=== PATIENT | male | born 1970 | race Caucasian/White ===

== ENCOUNTER 2023-10-22 11:22 | Inpatient (IN) ==
--- NOTE | 2023-10-22 11:50 | Emergency Department Note ---
Impression & Plan Weakness, Hypomagnesemia, Weight loss, Vomiting, Melanoma ED Provider Note NAME: WHITNEY MATUTE AGE: 52 SEX: M : 1970 ARRIVES VIA: Walk-In INFORMANT: [Patient][] ED PROVIDER(S): [Scott Galicia MD] CHIEF COMPLAINT: Referred HISTORY OF PRESENT ILLNESS: The patient is a 52-year-old male with a history of melanoma. He is undergoing treatment with Keytruda. For the last 3 months, he has done poorly. He has lost 60 pounds. He keeps vomiting despite numerous meds prescribed at home. He was [facility] seen [facility] and was felt in need of a hospital admission. As a direct admit was not possible, he was referred to the ER. The patient does admit to dizziness with standing. He feels at times like he may pass out. He feels generalized weakness. He did vomit at the [facility] while in the waiting room. There is no diarrhea, no fever, chills, cough or congestion. No one-sided weakness. The patient states that he last had Keytruda on September 20. His most recent scheduled dose was held as he was too weak and washed out to receive the therapy. At this point in time, the cause for his persistent vomiting is unclear. The cancer physician asked that he see GI while hospitalized and that an MRI be done to look for metastatic lesions. Laboratory work was done prior to arrival. The patient's magnesium was somewhat low. No renal failure. There was no leukocytosis. The patient does admit to frequent hiccups. By report, recent CT imaging of the chest, abdomen/pelvis did not show metastatic disease. PMHx/PSHx/Social Hx: See Below PHYSICAL EXAM: GENERAL: Patient is in no acute distress. HEENT: No acute trauma, normocephalic atraumatic, mucous membranes moist, no nasal congestion. NECK: No stridor, no adenopathy, no meningismus, trachea is midline. LUNGS: Clear to auscultation bilaterally, no wheeze, no rhonchi, breath sounds equal. HEART: Mildly tachycardic, regular rhythm, no murmurs. ABDOMEN: Soft, nontender, no peritonitis. EXTREMITIES: No cyanosis, full range of motion of all the joints without pain or difficulty. NEUROLOGIC: Oriented x 3, no acute motor or sensory deficits, no focal weakness. SKIN: No jaundice, no diaphoresis. DIFFERENTIAL DIAGNOSIS: Metastatic disease, dehydration, electrolyte imbalance, medication reaction, failed outpatient management, gastritis, among others. EMERGENCY DEPARTMENT PROCEDURES: MEDICAL DECISION MAKING: The patient's laboratory workup from earlier today did not show any leukocytosis. The patient was anemic with a hemoglobin of 10.7. This was a slight drop from recent testing. There was a normal platelet count. Potassium was mildly low at 3.4. No renal failure. Magnesium is low at 1.5. There was no concerning liver enzyme elevation. On exam, the patient was not toxic or febrile. He was not in pain. The patient was given IV Phenergan, IV Protonix, IV magnesium and 1 L of lactated Ringer's. The patient presents from the cancer center. He has had a significant weight loss. He is vomiting despite numerous medications tried outpatient. Hospitalization was felt warranted by the cancer specialist. I did order for a brain MRI as suggested by the cancer team. This returned showing no findings of metastasis. I spoke with the patient and his family, I did speak with case management, the on-call hospitalist was consulted. At this point, the cause for the persistent vomiting is unclear Prior/Outside records/notes reviewed: ED visit note from 10/16/2023 discussing his vomiting, care and the plan moving forward. ECG per my interpretation: Indication was weakness. The ECG shows a normal sinus rhythm with a rate of 82. There is an incomplete right bundle branch bloc k. There is no concerning ST elevation, no PVCs but there is some baseline artifact. The QTc is 488. Continuous Cardiac Monitoring per my interpretation: An order was placed for continuous cardiac monitoring. The monitor shows a rate of 88 with normal sinus rhythm. Imaging/x-ray results per my interpretation: Chronic Medical/Social conditions affecting care: Diagnosis of melanoma. Care/Management discussed with: Case management and the on-call hospitalist. Level of care consideration(s): After review of the information above and other included data: --I believe the patient requires escalation of care to admission DISPOSITION: Admission Past Med/Surg History Medical History Melanoma Surgical History History of skin surgery Social History Smoking Status: Never smoker Tobacco Type: Cigarettes Hx Alcohol Use: No Hx Substance Use: No Preferred Language: Mongolian Communication Ability: Effective Chief Data Officer Required: No Beliefs That Will Affect Care: None Current Living Situation: Spouse Other Information That Helps Us Care for You: No Feels Safe at Home: Yes Safety Concerns: Feels Safe At This Time Assistive Devices: Cane and Glasses Allergies Allergies Allergy/AdvReac Type Severity Reaction Status Date / Time aspirin Allergy King's Verified 10/22/23 12:50 syndrome Home Meds Home Medications Medication Instructions Recorded Confirmed ondansetron 4 mg disintegrating 4 mg translingual Q12 PRN Nausea 10/22/23 10/22/23 tablet prochlorperazine maleate 5 mg 5 mg PO Q6 PRN Nausea 10/22/23 10/22/23 tablet promethazine 25 mg tablet 25 mg PO Q6 PRN Nausea 10/22/23 10/22/23 Previous Rx's Medication Instructions Recorded promethazine 25 mg rectal 25 mg IN Q6H PRN sedation #12 ea 10/16/23 suppository Results & Data (ED) Vital Signs Vital Signs - 24 hr 10/22/23 11:24 10/22/23 12:05 Temperature 36.7 C Temperature Source Temporal Artery Scan Pulse Rate 88 Pulse Rate [Finger] 86 Respiratory Rate 20 18 Respiratory Effort / Characteristics Non-Labored Spontaneous Non-Labored Respiratory Depth Normal Normal Respiratory Pattern Regular Blood Pressure 109/71 Blood Pressure [Left Arm] 146/81 H Blood Pressure Mean 83 Blood Pressure Mean [Left Arm] 102 Pulse Oximetry 100 96 Oxygen Delivery Method Room Air Room Air Sepsis Recent Fever Within 48 Hours No Sepsis New/Unexplained Change in Mental Status No Sepsis Action Taken by Nursing No Action Required Home Medications Current Medication List: was personally reviewed by me Laboratory Data Attestation: I reviewed the patient's lab results. Lab Results 10/22/23 Range/Units 09:40 Phosphorus 4.9 (2.5-4.9) mg/dl Administered Medications Lactated Ringer's (Lr) 1,000 mls @ 100 mls/hr IV .Q10H WARD Stop: 10/23/23 08:29 Last Admin: 10/22/23 13:59 Dose: 100 mls/hr Documented By: SUSAN Potassium Chloride (K Jagjit / Wtr) 10 meq in 100 mls @ 100 mls/hr IV Q1H WARD Stop: 10/22/23 16:29 Last Admin: 10/22/23 15:58 Dose: 100 mls/hr Documented By: Infusion: 10/22/23 15:58 Dose: Infused Documented By: Admin: 10/22/23 14:55 Dose: 100 mls/hr Documented By: SUSAN Ropinirole HCl (Ropinirole Hcl 0.25 Mg Tablet) 0.25 mg PO TID WARD Stop: 11/21/23 14:59 Last Admin: 10/22/23 15:24 Dose: 0.25 mg Documented By: SUSAN Discontinued Medications Diphenhydramine HCl (Diphenhydramine 50 Mg/Ml Vial) 25 mg IV NOW STA Stop: 10/22/23 12:44 Last Admin: 10/22/23 14:18 Dose: 25 mg Documented By: SUSAN Gadobutrol (Gadobutrol 30ml Vial) 9 ml IV ONCE ONE Stop: 10/22/23 13:58 Last Admin: 10/22/23 13:42 Dose: 9 ml Documented By: LORENE Lactated Ringer's (Lr) 1,000 mls @ 999 mls/hr IV .Q1H1M ONE Stop: 10/22/23 12:44 Last Infusion: 10/22/23 15:15 Dose: Infused Documented By: Admin: 10/22/23 12:02 Dose: 999 mls/hr Documented By: SUSAN Promethazine HCl (Phenergan) 12.5 mg in 50.5 mls @ 202 mls/hr IV NOW STA Stop: 10/22/23 11:58 Last Infusion: 10/22/23 12:20 Dose: Infused Documented By: Admin: 10/22/23 11:56 Dose: 202 mls/hr Documented By: SUSAN Magnesium Sulfate/Dextrose (Magnesium Sulfate / D5w) 1 gm in 100 mls @ 100 mls/hr IV Q1H WARD Stop: 10/22/23 13:43 Last Infusion: 10/22/23 16:29 Dose: Infused Documented By: Admin: 10/22/23 15:24 Dose: 100 mls/hr Documented By: Infusion: 10/22/23 14:52 Dose: Infused Documented By: Admin: 10/22/23 12:00 Dose: 100 mls/hr Documented By: SUSAN Pantoprazole Sodium 40 mg/ (Syringe) 10 mls @ 5 mls/min IV NOW ONE Stop: 10/22/23 11:45 Last Admin: 10/22/23 14:18 Dose: 5 mls/min Documented By: SUSAN Miscellaneous (Stat Iv Infusion Titration Per Protocol) 1 each N/A NOW STA Stop: 10/22/23 14:09 Last Admin: 10/22/23 15:15 Dose: Not Given Documented By: SUSAN Imaging Data Radiologist's Impression: Brain MRI 10/22/23 11:44 MRI OF THE BRAIN COMBO CLINICAL HISTORY: Malignant melanoma. COMPARISON STUDY: MRI of the brain dated 03/18/2023. TECHNIQUE: MRI of the brain was performed utilizing various T1 and T2-weighted sequences in the axial, sagittal, and coronal planes. Contrast-enhanced sequences were acquired following the administration of 9 cc of Gadavist. FINDINGS: Brain parenchyma: The brain parenchyma is normal in appearance. There is no hemorrhage or mass effect. There is no restricted diffusion to suggest acute ischemia. No enhancing mass lesion is identified on the postcontrast images. Cherry-white matter differentiation is preserved. No extra-axial fluid collection is seen. The cerebellar tonsils are normal in configuration. Ventricles, sulci, and cisterns: Normal in configuration. Pituitary and sella: Unremarkable. Intracranial vasculature: Normal flow voids are maintained at the skull base. Orbits: The bony orbits are grossly intact. Orbital contents are normal in appearance. Sinuses and mastoids: There is a 3.8 cm retention cyst in the left maxillary antrum. Trace mucosal thickening seen within the left posterior ethmoid sinuses. The remaining paranasal sinuses and the mastoid air cells are clear. Calvarium: Unremarkable. Cervical cord: Partially visualized cervical spinal cord is normal in morphology and signal intensity. IMPRESSION: No acute intracranial abnormality is identified. Specifically, there is no evidence of intracranial metastatic disease. ACT 112: Negative or not required by law. Electronically signed by: Scott Vargas M.D. 10/22/2023 2:07 PM Discharge Plan Visit Data Chief Complaint: Referred by Doctor Stated Complaint: DIZZINESS, VOMITING, UNABLE TO EAT ED Provider: Scott Galicia Discharge Problem: Weakness, Hypomagnesemia, Weight loss, Vomiting, Melanoma Patient Disposition: Admitted As Inpatient Condition: Fair Discharge Instructions Interventions: ED Discharge Assessment Last Done: 10/22/23 12:54 Discharge Problem: Vomiting Qualifiers: Vomiting type: unspecified Nausea presence: with nausea Qualified Code(s): R11.2 - Nausea with vomiting, unspecified Melanoma Qualifiers: Melanoma location: unspecified site Qualified Code(s): C43.9 - Malignant melanoma of skin, unspecified
[2023-10-22] MEDS: PROMETHAZINE 12.5 MG/50.5 ML BAG IV STA (11:56)
[2023-10-22] MEDS: MAGNESIUM SULFATE / D5W 1 GM/100 ML BAG IV SCH (12:00)
[2023-10-22] MEDS: LACTATED RINGER'S 1,000 ML IV ONE (12:02)
--- NOTE | 2023-10-22 12:16 | History & Physical Report ---
Date of Service October 22, 2023 Assessment & Plan (1) Nausea & vomiting: Plan: -Admit to med/tele -Currently stable and non-toxic appearing -[facility] due to ongoing intractable nausea/vomiting, dehydration, dizziness, and weight loss -Has been experiencing these symptoms for months, no acute abdominal changes, had a negative CT of the abd/pelvis on 10/13 -Likely due to his known melanoma and Keytruda treatment -Compazine had been ineffective outpatient, was switched to zofran after his last ED visit on 10/13, this has also been ineffective -Was given 1L LR, a dose of Phenergan, 40 mg IV pantoprazole, and ordered 2 bags of 1gm IV mag-sulfate in the ED -Will continue him on maintenance LR moving forward until he can keep liquids down consistency. -Will need to continue to monitor him on tele for now as his QTc today is 488 -Will try a dose of IV benadryl now to see if this helps his nausea and itching -Could also consider ativan if QTc prolongation continues to be a concern -Will follow the MRI of the brain w/wo con ordered by the ED -Will add on Phos level to labs from this am -Oncology consult placed to follow while admitted -BL FELIX's for DVT PPX -Clear liquid diet -AM CBC, CMP mag, PT/INR, Phos (2) Malnutrition: Plan: -Has lost approximately 60 lbs since July -Will consult our [facility] to follow (3) Dizziness: Plan: -Is associated with positional changes and worst when going from sitting to standing -Denies sensation that room is spinning or changes in hearing/auditory fullness -Sounds most consistent with dehydration and orthostasis -Will follow MRI of the brain w/wo con -Continue IV hydration -Monitor for arrhythmias on tele -Will order am orthostatic vitals tomorrow -If not improving after IV fluids today could consider TTE -Fall precautions ordered (4) History of melanoma: Plan: -Oncology consult placed (5) Hypokalemia: Plan: -Noted to be 3.4 today -Mag is 1.5 -Due to poor oral intake and ongoing nausea/vomiting -Was ordered 2 bags IV mag sulfate in the ED -Will order 4 bags of IV KCL to be given on admission -Continue to monitor on tele -Follow am renal function and electrolytes (6) Hypomagnesemia: Plan: -See hypokalemia Plan The patient was discussed with Dr. Vizcaino at the time of the admission Admission and Anticipated Discharge Date Admission Date: I personally saw and examined the patient. I verified all [place] points and agree with Brendon Singh PA-C with the following exceptions and/or additions: 52 year old male presents to the ER with nausea, vomiting and pruritus. Currently on Keytruda for melanoma. Progressively worse symptoms over the last month. O/E A&Ox3, HS RRR, no murmurs, Chest CTAB, Abdo SNT A/P Intractable nausea, vomiting, pruritus - suspect symptoms secondary to Keytruda. No odynophagia/dysphagia to suggest there is a structural problem. He has only just started ondansetron which is likely to work the best. Ondansetron 1st line, Compazine 2nd line. Clear liquid diet but advance as tolerated. Consult gastroenterology as requested by oncology. History of Present Illness Chief Complaint: Intractable nausea and vomiting Primary Care Provider: NO PCP Wilfrid is a 52 year old male with a PMH significant for melanoma, Keytruda therapy has been on hold due to weakness (last dose on 09/21/23) , who presented to the [facility]23 due to concerns for ongoing intractable nausea/vomiting, dehydration, and dizziness when standing. He remained stable while in the ED. Labs were significant for a potassium of 3.4, mag of 1.5. [facility] tried to directly admit the patient but there were no available bed so he was sent to the ED. The patient presented to the ED on 10/13 with the same complaints. CT of the chest/abd/pelvis without con were obtained at that time and read as negative for acute findings. Prior to admission today the patient was given 1L LR, ordered 2gm IV mag sulfate, and given 40 mg IV pantoprazole, and 12.5 mg IV Promethazine. The ED staff did order an MRI of the brain w/wo con requested by the Oncology team prior to admission. At the time of the exam the patient was lying in bed in no acute distress with his sitting bedside, history was obtained from both. They confirm he has no other PMH besides his current melanoma diagnosis. He has lost approximately 60 lbs since the beginning of this year due to poor oral intake from recurrent nausea and vomiting. Has also been having ongoing issues with lightheadedness/dizziness with positional changes. He denies these symptoms while at rest. Denies recent headache, changes in vision, hearing, taste, and smell, chest pain, SOB, cough, aspiration, hematemesis, abd pain, dysuria, hematuria, melena, diarrhea, constipation, LE swelling, and recent trauma. He has been dealing with itching on the upper and lower extremities which started after receiving keytruda treatments. He does not noticed a rash but thinks his skin has also been dry. He has been unable to keep solids or liquids down consistently. Please refer to Dr. Vizcaino's attestation for any changes to the treatment plan Allergies Allergy/AdvReac Type Severity Reaction Status Date / Time aspirin Allergy King's Verified 10/22/23 12:50 syndrome Home Medications Medication Instructions Recorded Confirmed Type promethazine 25 mg rectal 25 mg [place] Q6H PRN sedation #12 ea 10/16/23 10/22/23 Rx suppository ondansetron 4 mg disintegrating 4 mg translingual Q12 PRN Nausea 10/22/23 10/22/23 History tablet promethazine 25 mg tablet 25 mg PO Q6 PRN Nausea 10/22/23 10/22/23 History pantoprazole 40 mg tablet,delayed 40 mg PO DAILY #30 tabs 10/25/23 Rx release (Protonix) Past Med/Surg History Medical History Melanoma Surgical History History of skin surgery Social History Smoking Status: Never smoker Tobacco Type: Cigarettes Hx Alcohol Use: No Hx Substance Use: No Preferred Language: Bruneian Communication Ability: Effective Technical Support Analyst Required: No Beliefs That Will Affect Care: None Current Living Situation: Spouse Feels Safe at Home: Yes Assistive Devices: Cane Physical Exam Physical Exam: Physical Exam: General: In no acute distress, stated age, non-toxic appearing HEENT: Normocephalic, atraumatic, no scleral icterus, pupils around round, symmetrical, and reactive to light, dry mucus membranes, trachea midline, no thyromegaly Chest/Pulm: No respiratory distress, symmetrical chest expansion, clear breath sounds throughout Cardiac: RRR, no murmurs noted Abdomen: Negative for ascites and bruising, normoactive bowel sounds, soft, non-tender to palpation throughout Musculoskeletal: Symmetrical and without signs of acute trauma, upper and lower extremities with full ROM, no atrophy, spasticity, or flaccidity Extremities: Radial, dorsalis pedis, and posterior tibial pulses are intact and symmetrical, no edema noted in the BL LE's Skin: Warm, dry, no rashes , lesions, or scars noted Neuro: Alert and oriented to person, place, month, year, and president, no focal defects, CN II-XII tested and intact, negative cerebellar and pronator drift BL, no tremors noted Psych: No acute distress, calm and cooperative during the exam Results & Data Results & Data Vital Signs (Past 12 Hours) Vital Signs Temp Pulse Resp BP Pulse Ox O2 Del Method 10/22/23 11:24 36.7 C 88 20 109/71 100 Room Air ECG Additional Comments: Normal sinus rhythm Possible Left atrial enlargement Incomplete right bundle branch block Prolonged QT Abnormal ECG No previous ECGs available Code Status & VTE Plan Code Status Full code VTE Prophylaxis Plan VTE Prophylaxis will be ordered: Yes PG Care Time/CCT Total # of Minutes Spent Total Time Spent with Patient: Total time spent is greater than 50% in coordination of care (as documented) at patient's floor/unit and/or counseling patient: [place] [address] INT INP/OBS CARE 3/75MIN Patient Type New Medical Decision Making High Complexity Diagnoses Nausea & vomiting R11.2 Vomiting type: unspecified Malnutrition E46 Dizziness R42 History of melanoma Z85.820 Hypokalemia E87.6 Hypomagnesemia E83.42 (1) Nausea & vomiting Vomiting type: unspecified Qualified Code(s): R11.2 - Nausea with vomiting, unspecified
[2023-10-22] MEDS ORDERED: ACETAMINOPHEN 1,000 MG/100 ML VIAL IV PRN (12:36)
[2023-10-22] MEDS: GADOBUTROL 30ML VIAL IV ONE (13:42)
[2023-10-22] MEDS: LACTATED RINGER'S 1,000 ML IV SCH (13:59)
[2023-10-22] MEDS ORDERED: 0.2 MICRON FILTER SET 1 EACH IV STA (14:08)
[2023-10-22] MEDS ORDERED: AMIODARONE IV BOLUS & DRIP IV STA (14:08)
[2023-10-22] MEDS ORDERED: AMIODARONE / D5W 150 MG/100 ML BAG IV STA (14:08)
--- NOTE | 2023-10-22 14:08 | Magnetic Resonance Report ---
MRI OF THE BRAIN COMBO CLINICAL HISTORY: Malignant melanoma. COMPARISON STUDY: MRI of the brain dated 03/18/2023. TECHNIQUE: MRI of the brain was performed utilizing various T1 and T2-weighted sequences in the axial , sagittal, and coronal planes. Contrast-enhanced sequences were acquired following the administratio n of 9 cc of Gadavist. FINDINGS: Brain parenchyma: The brain parenchyma is normal in appearance. There is no hemorrhage or mass effect . There is no restricted diffusion to suggest acute ischemia. No enhancing mass lesion is identified on the postcontrast images. Cherry-white matter differentiation is preserved. No extra-axial fluid eliana ection is seen. The cerebellar tonsils are normal in configuration. Ventricles, sulci, and cisterns: Normal in configuration. Pituitary and sella: Unremarkable. Intracranial vasculature: Normal flow voids are maintained at the skull base. Orbits: The bony orbits are grossly intact. Orbital contents are normal in appearance. Sinuses and mastoids: There is a 3.8 cm retention cyst in the left maxillary antrum. Trace mucosal th ickening seen within the left posterior ethmoid sinuses. The remaining paranasal sinuses and the mast oid air cells are clear. Calvarium: Unremarkable. Cervical cord: Partially visualized cervical spinal cord is normal in morphology and signal intensity . IMPRESSION: No acute intracranial abnormality is identified. Specifically, there is no evidence of i ntracranial metastatic disease. ACT 112: Negative or not required by law. Electronically signed by: Scott Vargas M.D. 10/22/2023 2:07 PM
[2023-10-22] MEDS: diphenhydrAMINE 50 MG/ML VIAL IV STA (14:18)
[2023-10-22] MEDS: PANTOprazole 40 MG in SYRINGE 0 ML IV ONE (14:18)
[2023-10-22] MEDS ORDERED: AMIODARONE / D5W 360 MG/200 ML BAG IV ONE (14:18)
[2023-10-22] MEDS: POTASSIUM CHLORIDE / WTR 10 MEQ/100 ML PLCT IV SCH (14:55)
[2023-10-22] MEDS: STAT IV Infusion **Titration per Protocol STA (15:15)
[2023-10-22] MEDS: rOPINIRole HCL 0.25 MG TABLET PO SCH ×2 (15:24→23:01)
[2023-10-22] MEDS ORDERED: diphenhydrAMINE 50 MG/ML VIAL IV PRN (17:10)
[2023-10-22] MEDS ORDERED: AMIODARONE / D5W 360 MG/200 ML BAG IV SCH (20:15)
[2023-10-22] MEDS ORDERED: ONDANSETRON INJ 2 MG/ML 2 ML VIAL IV PRN (20:36)
[2023-10-22] MEDS ORDERED: PROCHLORPERAZINE 10 MG in SYRINGE 8 ML IV PRN (20:37)
[2023-10-23 05:55] LABS: Albumin Globulin Ratio 1.6 (0.9-2); Albumin Level 3.4 gm/dl (3.4-5.0); BUN Creatinine Ratio 21.4 (10-20); Bilirubin,Total 0.6 mg/dl (0.2-1.0); Calcium 8.9 mg/dl (8.6-10.3); Creatinine Clr Calc Pharmacy 112.9 ml/min; Est GFR (African American) 116.7 ml/min; Est GFR (Non-African American) 100.7 ml/min; Globulin 2.1 gm/dl (2.5-4.0); Magnesium 1.9 mg/dl (1.7-2.4); Potassium 4.7 mmol/L (3.5-5.1); Total Protein 5.5 gm/dl (6.0-8.3)
[2023-10-23 06:27] LABS: Basophils # (auto) 0.01 K/uL (0.00-0.20); Basophils % (auto) 0.3 %; Hematocrit (blood only) 31.1 % (42.0-52.0); Hemoglobin 10.1 g/dl (14.0-18.0); Immature Granulocytes # (auto) 0.01 K/uL (0.01-0.20); Immature Granulocytes % (auto) 0.3 %; Lymphocytes # (auto) 0.68 K/uL (1.20-3.40); Lymphocytes % (auto) 21.7 %; Mean Corpuscular Hemoglobin 28.7 pg (25.0-34.0); Mean Corpuscular Hgb Conc 32.5 g/dL (32.0-36.0); Mean Corpuscular Volume 88.4 fL (80.0-100.0); Mean Platelet Volume 11.9 fL (9.4-12.4); Monocytes # (auto) 0.15 K/uL (0.11-0.59); Monocytes % (auto) 4.8 %; Neutrophils # (auto) 2.29 K/uL (1.40-6.50); Neutrophils % (auto) 72.9 %; Platelet Count 157 K/uL (130-400); RDW Coefficient of Variation 12.7 % (11.5-14.5); RDW Standard Deviation 40.9 fL (36.4-46.3); Red Blood Count 3.52 M/uL (4.70-6.10); White Blood Count 3.14 K/ul (4.8-10.8)
--- NOTE | 2023-10-23 07:13 | Electrocardiogram Report ---
Test Reason : Blood Pressure : / mmHG Vent. Rate : 082 BPM Atrial Rate : 082 BPM P-R Int : 186 ms QRS Dur : 108 ms QT Int : 402 ms P-R-T Axes : 066 050 045 degrees QTc Int : 470 ms Normal sinus rhythm Possible Left atrial enlargement Incomplete right bundle branch block Abnormal ECG No previous ECGs available Confirmed by Kali Barber ([id number]) on 10/23/2023 7:13:12 AM Referred By: REFERRED SELF Confirmed By:Kali Barber
--- NOTE | 2023-10-23 10:36 | Gastrointestinal Consultation ---
Date of Consultation October 23, 2023 Assessment & Plan (1) Vomiting: He has persistent vomiting (although none since admit) that I believe is related to Keytruda. He has no pain nor any dyspeptic symptoms so I doubt ulcer disease is causing the problem. It is possible to get metastatic melanoma to the gut so that needs to be considered. I do think EGD is warranted but it is not emergent. I told him it could be arranged as an outpatient or, if he is here Wednesday we can do it then. I will discuss with him tomorrow as he believes he will be here at least through tomorrow. It is okay with me to advance his diet as tolerated. History of Present Illness Reason for Consultation: vomiting Attending Physician: Antoni Bolivar MD History of Present Illness 52 year old man with malignant melanoma on Keytruda who has been vomiting since the first of the year. He started Keytruda in February and had no problems until the June dosage. Now as time goes on his vomiting is getting worse and he has been unable to hold things down. With this he gets dizzy and weak and has been unable to work. It was decided yesterday he needed to be admitted. He never had problem with vomiting before. He has never seen a GI doc even during this prolonged episode of vomiting. He has not had a colonoscopy. He denies heartburn and indigestion. He has no abdominal pain. Allergies Allergy/AdvReac Type Severity Reaction Status Date / Time aspirin Allergy King's Verified 10/22/23 12:50 syndrome Home Medications Medication Instructions Recorded Confirmed Type promethazine 25 mg rectal 25 mg GA Q6H PRN sedation #12 ea 10/16/23 10/22/23 Rx suppository ondansetron 4 mg disintegrating 4 mg translingual Q12 PRN Nausea 10/22/23 10/22/23 History tablet prochlorperazine maleate 5 mg 5 mg PO Q6 PRN Nausea 10/22/23 10/22/23 History tablet promethazine 25 mg tablet 25 mg PO Q6 PRN Nausea 10/22/23 10/22/23 History Patient History Medical History Melanoma Surgical History History of skin surgery Social History Smoking Status: Never smoker Tobacco Type: Cigarettes Hx Alcohol Use: No Hx Substance Use: No Preferred Language: Citizen Of [place] Communication Ability: Effective Four H Agent Required: No Beliefs That Will Affect Care: None Current Living Situation: Spouse Other Information That Helps Us Care for You: No Feels Safe at Home: Yes Safety Concerns: Feels Safe At This Time Assistive Devices: Cane and Glasses Review of Systems Review of Systems: All systems reviewed & are unremarkable except as noted in HPI & below Physical Exam Constitutional: WD/WN, vitals as above Neck: trachea midline, no thyromegaly Respiratory: normal respiratory effort, lungs clear to auscultation Cardiovascular: RRR, no murmur, no edema Gastrointestinal (Abdomen): normal bowel sounds, soft, nontender, no hepatosplenomegaly Musculoskeletal: Extremities: extremities normal to inspection Results & Data Vital Signs (Past 12 Hours) Vital Signs Temp Pulse Pulse Resp BP Pulse Ox O2 Del Method 10/23/23 07:58 36.6 C 96 H 18 127/84 95 Room Air 10/23/23 07:45 Room Air 10/23/23 06:16 99 H 10/23/23 04:56 36.4 C L 84 20 146/90 H 97 Room Air Laboratory Results 10/23/23 10/23/23 10/22/23 Range/Units 05:44 04:47 17:01 WBC 3.14 L Cancelled RBC 3.52 L Cancelled Hgb 10.1 L Cancelled Hct 31.1 L Cancelled MCV 88.4 Cancelled MCH 28.7 Cancelled MCHC 32.5 Cancelled RDW Std Deviation 40.9 Cancelled RDW Coeff of Sena 12.7 Cancelled Plt Count 157 Cancelled MPV 11.9 Cancelled Immature Gran % (Auto) 0.3 Cancelled Neut % (Auto) 72.9 Cancelled Lymph % (Auto) 21.7 Cancelled [place] % (Auto) 4.8 Cancelled Eos % (Auto) 0.0 Cancelled Baso % (Auto) 0.3 Cancelled Neut # (Auto) 2.29 Cancelled Lymph # (Auto) 0.68 L Cancelled [place] # (Auto) 0.15 Cancelled Eos # (Auto) 0.00 Cancelled Baso # (Auto) 0.01 Cancelled Immature Gran # (Auto) 0.01 Cancelled Absolute Nucleated RBC Cancelled Nucleated RBC % (auto) Cancelled Neutrophils % (Manual) Cancelled Band Neutrophils % Cancelled Lymphocytes % (Manual) Cancelled Prolymphocyte % Cancelled Reactive Lymphs % (Man) Cancelled Monocytes % (Manual) Cancelled Eosinophils % (Manual) Cancelled Basophils % (Manual) Cancelled Metamyelocytes % (Man) Cancelled Myelocytes % (Man) Cancelled Promyelocytes % (Man) Cancelled Blast Cells % (Manual) Cancelled Plasma Cell % (Manual) Cancelled Other Cells % Cancelled Nucleated RBC % Cancelled Neutrophils # (Manual) Cancelled Band Neutrophils # Cancelled Total Absolute Neuts Cancelled Lymphocytes # (Manual) Cancelled Prolymphocyte # Cancelled Reactive Lymphs # Cancelled Total Abs Lymphocytes Cancelled Monocytes # (Manual) Cancelled Eosinophils # (Manual) Cancelled Basophils # (Manual) Cancelled Metamyelocytes # (Man) Cancelled Myelocytes # (Manual) Cancelled Promyelocytes # (Man) Cancelled Blast Cells # (Man) Cancelled Plasma Cell # (Manual) Cancelled Other Cells # Cancelled Nucleated RBCs # (Man) Cancelled Hypersegmented Neuts Cancelled Hyposegmented Neuts Cancelled Hypogranular Neuts Cancelled Large Granular Lymphs Cancelled # Lrg Granular Lymphs Cancelled Hairy Cells Cancelled Smudge Cells Cancelled Toxic Granulation Cancelled Toxic Vacuolation Cancelled Dohle Bodies Cancelled Joshua Rods Cancelled Platelet Estimate Cancelled Hypogranular Platelets Cancelled Giant Platelets Cancelled Platelet Satelliting Cancelled RBC Morphology Cancelled Polychromasia Cancelled Hypochromasia Cancelled Poikilocytosis Cancelled Basophilic Stippling Cancelled Anisocytosis Cancelled Microcytosis Cancelled Macrocytosis Cancelled Spherocytes Cancelled Pappenheimer Bodies Cancelled Sickle Cells Cancelled Target Cells Cancelled Tear Drop Cells Cancelled Ovalocytes Cancelled Stomatocytes Cancelled [place] Bodies Cancelled Echinocytes Cancelled Acanthocytes (Spur) Cancelled Rouleaux Cancelled RBC Agglutinates Cancelled Schistocytes Cancelled [place] Cell Cancelled Sodium 138 (136-145) mmol/L Potassium 4.7 D (3.5-5.1) mmol/L Chloride 111 H (98-107) mmol/L Carbon Dioxide 19 L (21-32) mmol/L Anion Gap 8 (3-11) BUN 18 (6-23) mg/dl Creatinine 0.84 (0.6-1.4) mg/dl Est Cr Clr Drug Dosing 112.9 ml/min Est GFR ( Amer) 116.7 ml/min Est GFR (Non-Af Amer) 100.7 ml/min BUN/Creatinine Ratio 21.4 H (10-20) Glucose 170 H (70-99(Fasting)) mg/dl POC Glucose 117 H (70-99) mg/dl Calcium 8.9 (8.6-10.3) mg/dl Phosphorus (2.5-4.9) mg/dl Magnesium 1.9 (1.7-2.4) mg/dl Iron 76 (35-175) mcg/dl TIBC 159 L (250-450) mcg/dl Unsaturated IBC 83 L (155-355) mcg/dl Transferrin % Sat 48 (20-50) % Ferritin 353.0 (8-388) ng/ml Total Bilirubin 0.6 (0.2-1.0) mg/dl AST 27 (13-39) U/L ALT 22 (7-52) U/L Alkaline Phosphatase 36 (34-104) U/L Total Protein 5.5 L (6.0-8.3) gm/dl Albumin 3.4 (3.4-5.0) gm/dl Globulin 2.1 L (2.5-4.0) gm/dl Albumin/Globulin Ratio 1.6 (0.9-2) Vitamin B1 Pending Vitamin B12 863 (180-914) pg/ml Blood Parasites ID Cancelled 10/22/23 Range/Units 09:40 WBC RBC Hgb Hct MCV MCH MCHC RDW Std Deviation RDW Coeff of [place] Plt Count MPV Immature Gran % (Auto) Neut % (Auto) Lymph % (Auto) [place] % (Auto) Eos % (Auto) Baso % (Auto) Neut # (Auto) Lymph # (Auto) [place] # (Auto) Eos # (Auto) Baso # (Auto) Immature Gran # (Auto) Absolute Nucleated RBC Nucleated RBC % (auto) Neutrophils % (Manual) Band Neutrophils % Lymphocytes % (Manual) Prolymphocyte % Reactive Lymphs % (Man) Monocytes % (Manual) Eosinophils % (Manual) Basophils % (Manual) Metamyelocytes % (Man) Myelocytes % (Man) Promyelocytes % (Man) Blast Cells % (Manual) Plasma Cell % (Manual) Other Cells % Nucleated RBC % Neutrophils # (Manual) Band Neutrophils # Total Absolute Neuts Lymphocytes # (Manual) Prolymphocyte # Reactive Lymphs # Total Abs Lymphocytes Monocytes # (Manual) Eosinophils # (Manual) Basophils # (Manual) Metamyelocytes # (Man) Myelocytes # (Manual) Promyelocytes # (Man) Blast Cells # (Man) Plasma Cell # (Manual) Other Cells # Nucleated RBCs # (Man) Hypersegmented Neuts Hyposegmented Neuts Hypogranular Neuts Large Granular Lymphs # Lrg Granular Lymphs Hairy Cells Smudge Cells Toxic Granulation Toxic Vacuolation Dohle Bodies Joshua Rods Platelet Estimate Hypogranular Platelets Giant Platelets Platelet Satelliting RBC Morphology Polychromasia Hypochromasia Poikilocytosis Basophilic Stippling Anisocytosis Microcytosis Macrocytosis Spherocytes Pappenheimer Bodies Sickle Cells Target Cells Tear Drop Cells Ovalocytes Stomatocytes [place] Bodies Echinocytes Acanthocytes (Spur) Rouleaux RBC Agglutinates Schistocytes [place] Cell Sodium (136-145) mmol/L Potassium (3.5-5.1) mmol/L Chloride (98-107) mmol/L Carbon Dioxide (21-32) mmol/L Anion Gap (3-11) BUN (6-23) mg/dl Creatinine (0.6-1.4) mg/dl Est Cr Clr Drug Dosing ml/min Est GFR ( Amer) ml/min Est GFR (Non-Af Amer) ml/min BUN/Creatinine Ratio (10-20) Glucose (70-99(Fasting)) mg/dl POC Glucose (70-99) mg/dl Calcium (8.6-10.3) mg/dl Phosphorus 4.9 (2.5-4.9) mg/dl Magnesium (1.7-2.4) mg/dl Iron (35-175) mcg/dl TIBC (250-450) mcg/dl Unsaturated IBC (155-355) mcg/dl Transferrin % Sat (20-50) % Ferritin (8-388) ng/ml Total Bilirubin (0.2-1.0) mg/dl AST (13-39) U/L ALT (7-52) U/L Alkaline Phosphatase (34-104) U/L Total Protein (6.0-8.3) gm/dl Albumin (3.4-5.0) gm/dl Globulin (2.5-4.0) gm/dl Albumin/Globulin Ratio (0.9-2) Vitamin B1 Vitamin B12 (180-914) pg/ml Blood Parasites ID Diagnostic Findings Brain MRI 10/22/23 11:44 MRI OF THE BRAIN COMBO CLINICAL HISTORY: Malignant melanoma. COMPARISON STUDY: MRI of the brain dated 03/18/2023. TECHNIQUE: MRI of the brain was performed utilizing various T1 and T2-weighted sequences in the axial, sagittal, and coronal planes. Contrast-enhanced s equences were acquired following the administration of 9 cc of Gadavist. FINDINGS: Brain parenchyma: The brain parenchyma is normal in appearance. There is no hemorrhage or mass effect. There is no restricted diffusion to suggest acute ischemia. No enhancing mass lesion is identified on the postcontrast images. Cherry-white matter differentiation is preserved. No extra-axial fluid collection is seen. The cerebellar tonsils are normal in configuration. Ventricles, sulci, and cisterns: Normal in configuration. Pituitary and sella: Unremarkable. Intracranial vasculature: Normal flow voids are maintained at the skull base. Orbits: The bony orbits are grossly intact. Orbital contents are normal in appearance. Sinuses and mastoids: There is a 3.8 cm retention cyst in the left maxillary antrum. Trace mucosal thickening seen within the left posterior ethmoid sinuses. The remaining paranasal sinuses and the mastoid air cells are clear. Calvarium: Unremarkable. Cervical cord: Partially visualized cervical spinal cord is normal in morphology and signal intensity. IMPRESSION: No acute intracranial abnormality is identified. Specifically, there is no evidence of intracranial metastatic disease. ACT 112: Negative or not required by law. Electronically signed by: Scott Vargas M.D. 10/22/2023 2:07 PM (1) Vomiting Nausea presence: with nausea Vomiting type: unspecified Qualified Code(s): R11.2 - Nausea with vomiting, unspecified
--- NOTE | 2023-10-23 13:25 | Oncology Consultation ---
Date of Consultation October 23, 2023 Assessment & Plan (1) Melanoma: Failure to thrive associated with cancer directed therapy for possible recurrence of cancer. At this point will recommend in-hospital workup. He already underwent the MRI which was negative. Will possibly undergo upper GI endoscopy and colonoscopy per GI colleagues recommendations. From an oncology perspective we will hold on treatment and will follow the patient. Plan Medical oncology will continue to follow the patient and make appropriate recommendations. Outpatient follow-up in oncology clinic once discharged. History of Present Illness Reason for Consultation: Immunotherapy side effects Melanoma Attending Physician: Antoni Bolivar MD History of Present Illness [facility] physicians:Dr. Frausto, dermatology Dr. 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 Date of diagnosis:01/05/2023 Stage at diagnosis:pT3a pN1a (sn) though questionable microsatellite in the reresection and possible pN2c cM0 Overall IIIB/C Treatment: Plan adjuvant pembrolizumab for 1 year Pembrolizumab x 4 cycles 03/16/2023 - 05/18/2023 BRAF mutation panel has been requested and is pending as a possible indication of continued treatments for the future NCCN follow up recommendations after completion of treatment: History and physical every 3 to 6 months for 2 years [we may want to interpose axillary ultrasounds at 3-month intervals between the scheduled two-dimensional scans if done no more frequently than every 6 months in the first 2 years], 3 to 12 months for years 3 through 5 then as clinically indicated Consider imaging every 3 to 12 months for 2 years and every 6 to 12 months for another 3 years Brain imaging is considered periodically especially for IIIC. 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 Frausto performed shave biopsy, right upper back, skin: [facility] path: Nodular malignant melanoma Breslow's depth: 2.6 mm Mitotic index 5 mitoses per millimeter squared Vertical growth phase: Present Ulceration not identified Vascular invasion, lymphatic invasion not identified Spindle cell component not identified T IL: Nonbrisk Satellitosis: Not identified Peripheral and deep margins within 1 mm pT3a 02/03/2023 wide excision with sentinel lymph node biopsy Dr. Cardoso 02/03/2023 [facility] path 1. Skin, back, excision: Malignant melanoma and scar, completely excisedComment: There is an aggregate of pleomorphic pigmented epithelioid melanocytes within the scar that does not connect with the epidermis. This aggregate extends to a depth of 0.6 mm, and could represent residual primary melanoma or microscopic satellite Lentiginous compound dysplastic nevus,, excised 2. Skin, right axillary lesion, excision: Consistent with small lipoma and angioma 02/03/2023 [facility] path 1. Lymph node, right intramuscular sentinel lymph node hot and blue, excision: 1 lymph node, negative for metastatic melanoma (0/1) 2. Lymph node, right axillary sentinel node, hot and blue, excision: 1 lymph node, positive for metastatic melanoma (1/) Neither matted nor grossly posiktive Side of metastatic deposit: Subcapsular sinus Maximum depth of intraparenchymal extension: 0.1 cm, less than 1 cm from subcapsular sign Macrometastasis: 2.2 mm x 1 mm 02/25/2023 whole-body PET CT scan [facility] 1. FDG PET/CT demonstrates postsurgical changes of wide excision in the right posterior thorax, and right axillary node biopsy with moderate associated FDG uptake. Residual/recurrent disease involvement cannot be excluded. Attention on follow-up is recommended. 2. Right axillary lymph [0.6 cm] node/stranding with associated abnormal metabolic activity 3. Focal abnormal metabolic activity along the intercostal space between the second and third rib posteriorly may be associated with a pleural nodule, neoplastic involvement of the intercostal muscle, or may be physiologic 4. Multiple nonacute incidental findings on CT as described above starts clear breath described skin thickening is almost certainly postsurgical right hepatic hypodensity too small to characterize at 0.8 cm, simple renal cysts dystrophic calcifications within the prostate, and mild degenerative changes of the spine 03/18/2023 MR brain combo No evidence of metastatic disease. T2 hyperintense focus in the right tentorium likely represents a nonspecific prominence of the transverse sinus 06/02/2023 PET/CT .Thereisa1.9x0.8cmrightaxilla rychainlymphnode...withSUVmaxof1.8.Thepreviouslynoted2.2x1.7cm hypodensefocuswithmildmarginalhypermetabolicactivityhasresolved.Nonew orprogressivelymphadenopathyontoday'sexam. . . . No suspicious pulmonary nodules are identified. . . . IMPRESSION: 1. Decreased subcutaneous stranding and hypermetabolic activity within the right upper back soft tissues compared to the 02/25/2023 study which likely correlated with the resection site. No evidence of residual or recurrent disease. 2. Decreased right axillary uptake with minimal likely physiologic uptake within a nonenlarged right axillary chain lymph node. Attention on follow-up recommended. 3.Nosuspiciousorhypermetabolicpulmonarynodules. #Thyroid. 05/17/2023 TSH 0.085 mIU/mL with free T4 4.43 pg/mL. We will ask nursing staff to continue with both free T4 and TSH with each treatment cycle for now, expected time he will become hypothyroid #Pleural noduleon PET/CT - non specific, monigtor on serial imaging. Repeat PET raises no concerns in the lungs #FH father with melanoma, non-Hodgkin's lymphoma, and colon cancer.Strongly suggested a screening colonoscope in the spring since he has never had a baseline #History of cigarette smokingrecently down to just an occasional cigarette. 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 Patient was admitted from the clinic after he was diagnosed to have failure to thrive, weight loss Allergies Allergy/AdvReac Type Severity Reaction Status Date / Time aspirin Allergy King's Verified 10/22/23 12:50 syndrome Home Medications Medication Instructions Recorded Confirmed Type promethazine 25 mg rectal 25 mg NC Q6H PRN sedation #12 ea 10/16/23 10/22/23 Rx suppository ondansetron 4 mg disintegrating 4 mg translingual Q12 PRN Nausea 10/22/23 10/22/23 History tablet promethazine 25 mg tablet 25 mg PO Q6 PRN Nausea 10/22/23 10/22/23 History pantoprazole 40 mg tablet,delayed 40 mg PO DAILY #30 tabs 10/25/23 Rx release (Protonix) Patient History Medical History Melanoma Surgical History History of skin surgery Social History Smoking Status: Never smoker Tobacco Type: Cigarettes Hx Alcohol Use: No Hx Substance Use: No Preferred Language: [place] Communication Ability: Effective Medical Office Worker Required: No Beliefs That Will Affect Care: None Current Living Situation: Spouse Feels Safe at Home: Yes Assistive Devices: Cane Review of Systems Review of Systems: All systems reviewed & are unremarkable except as noted in HPI & below Constitutional: as per Subjective / HPI Eyes: as per Subjective / HPI Ear, Nose, Mouth, Throat: as per Subjective / HPI Respiratory: as per Subjective / HPI Cardiovascular: as per Subjective / HPI Gastrointestinal: as per Subjective / HPI Genitourinary: + as per Subjective / HPI Musculoskeletal: as per Subjective / HPI Integumentary: as per Subjective / HPI Neurologic: as per Subjective / HPI Endocrine: as per Subjective / HPI Physical Exam Constitutional: WD/WN, vitals as above Eyes: PERRL, conjunctivae normal, anicteric sclerae ENMT: external ear and nose normal, oropharynx normal Neck: trachea midline, no thyromegaly Respiratory: normal respiratory effort, lungs clear to auscultation Cardiovascular: RRR, no murmur, no edema Gastrointestinal (Abdomen): normal bowel sounds, soft, nontender, no hepatosplenomegaly Musculoskeletal: no cyanosis or clubbing, extremities motor strength 5/5 Results & Data Vital Signs (Past 12 Hours) Vital Signs Temp Pulse Pulse Resp BP Pulse Ox O2 Del Method 10/23/23 07:58 36.6 C 96 H 18 127/84 95 Room Air 10/23/23 07:45 Room Air 10/23/23 06:16 99 H 10/23/23 04:56 36.4 C L 84 20 146/90 H 97 Room Air (1) Melanoma Melanoma location: unspecified site Qualified Code(s): C43.9 - Malignant melanoma of skin, unspecified
--- NOTE | 2023-10-23 14:41 | Hospitalist Progress Note ---
Date of Service October 23, 2023 Assessment & Plan (1) Nausea & vomiting: Plan: -[facility] due to ongoing intractable nausea/vomiting, dehydration, dizziness, and weight loss -Has been experiencing these symptoms for months, no acute abdominal changes, had a negative CT of the abd/pelvis on 10/13 -Likely due to his known melanoma and Keytruda treatment Currently on Compazine and Zofran Continue to monitor him on telemetry because of prolonged QT Check EKG in a.m. Patient is complaining of constant hiccups Ordered baclofen MRI brain negative Oncology on board GI on board, planning on EGD either inpatient or outpatient Will advance to a full liquid diet since tolerating clear liquid diet today (2) Malnutrition: Plan: -Has lost approximately 60 lbs since July -Will consult our Senior Reservations Agent group to follow (3) Dizziness: Plan: -Is associated with positional changes and worst when going from sitting to standing -Denies sensation that room is spinning or changes in hearing/auditory fullness -Orthostatic vital signs are negative today but this is after he received IV hydration MRI brain negative -Monitor for arrhythmias on tele Improved today (4) History of melanoma: Plan: -Oncology on board (5) Hypokalemia: Plan: Resolved after repletion Magnesium repleted as well -Follow am renal function and electrolytes (6) Hypomagnesemia: Plan: -See hypokalemia Admission and Anticipated Discharge Date Admission Date: October 22, 2023 Subjective Patient feels slightly better today. Has not vomited since admission. Tolerating a clear liquid diet Review of Systems Review of Systems: All systems reviewed & are unremarkable except as noted in Subjective Physical Exam Physical Exam: General: Awake, conversant Heart: S1, S2/regular rate and rhythm, no murmur rubs or gallops Lungs: Clear to auscultation bilaterally. Normal effort Abdomen: Soft/nontender/nondistended. No hepatosplenomegaly Extremities: No clubbing/cyanosis. No edema Behavior: Appropriate, cooperative Results & Data Results & Data Vital Signs (Past 12 Hours) Vital Signs Temp Pulse Pulse Resp BP Pulse Ox O2 Del Method 10/23/23 07:58 36.6 C 96 H 18 127/84 95 Room Air 10/23/23 07:45 Room Air 10/23/23 06:16 99 H 10/23/23 04:56 36.4 C L 84 20 146/90 H 97 Room Air PG Care Time/CCT Total # of Minutes Spent Total Time Spent with Patient: Total time spent is greater than 50% in coordination of care (as documented) at patient's floor/unit and/or counseling patient: Coding Level of Care Code 19139 SUB INP/OBS CARE 2/35MIN Diagnoses Nausea & vomiting R11.2 Vomiting type: unspecified Malnutrition E46 Dizziness R42 History of melanoma Z85.820 Hypokalemia E87.6 Hypomagnesemia E83.42 (1) Nausea & vomiting Vomiting type: unspecified Qualified Code(s): R11.2 - Nausea with vomiting, unspecified
[2023-10-23] MEDS: BACLOFEN 10 MG TAB PO SCH (20:15)
[2023-10-24 05:26] LABS: Hemoglobin 9.8 g/dl (14.0-18.0); Immature Granulocytes # (auto) 0.01 K/uL (0.01-0.20); Immature Granulocytes % (auto) 0.3 %; Lymphocytes # (auto) 0.86 K/uL (1.20-3.40); Lymphocytes % (auto) 22.3 %; Mean Corpuscular Hemoglobin 29.2 pg (25.0-34.0); Mean Corpuscular Hgb Conc 32.7 g/dL (32.0-36.0); Mean Corpuscular Volume 89.3 fL (80.0-100.0); Mean Platelet Volume 12.5 fL (9.4-12.4); Monocytes # (auto) 0.33 K/uL (0.11-0.59); Monocytes % (auto) 8.6 %; Neutrophils # (auto) 2.65 K/uL (1.40-6.50); Neutrophils % (auto) 68.8 %; Platelet Count 146 K/uL (130-400); RDW Coefficient of Variation 12.9 % (11.5-14.5); RDW Standard Deviation 42.3 fL (36.4-46.3); Red Blood Count 3.36 M/uL (4.70-6.10); White Blood Count 3.85 K/ul (4.8-10.8)
[2023-10-24 05:50] LABS: Albumin Globulin Ratio 1.6 (0.9-2); Albumin Level 3.5 gm/dl (3.4-5.0); BUN Creatinine Ratio 20.5 (10-20); Bilirubin,Total 0.6 mg/dl (0.2-1.0); Calcium 8.6 mg/dl (8.6-10.3); Creatinine Clr Calc Pharmacy 121.6 ml/min; Est GFR (African American) 120.3 ml/min; Est GFR (Non-African American) 103.8 ml/min; Globulin 2.2 gm/dl (2.5-4.0); Potassium 4.1 mmol/L (3.5-5.1); Total Protein 5.7 gm/dl (6.0-8.3)
--- NOTE | 2023-10-24 09:16 | Gastroenterology Progress Note ---
Date of Service October 24, 2023 Assessment & Plan (1) Vomiting: Plan: Doing better. Will arrange EGD for tomorrow Admission and Anticipated Discharge Date Admission Date: October 22, 2023 Subjective Doing well. Tolerating full liquid diet. Going to advance to solids later today. Would like to stay and get procedure as inpatient Physical Exam Physical Exam: He looks well Constitutional: WD/WN, vitals as above Results & Data Vital Signs (Past 12 Hours) Vital Signs Temp Pulse Pulse Resp BP Pulse Ox O2 Del Method 10/24/23 08:06 36.4 C L 83 20 115/76 97 Room Air 10/24/23 07:24 79 10/24/23 04:35 36.5 C 85 20 128/81 97 Room Air 10/23/23 23:57 36.7 C 93 H 20 135/81 95 Room Air 10/23/23 22:18 75 (1) Vomiting Nausea presence: with nausea Vomiting type: unspecified Qualified Code(s): R11.2 - Nausea with vomiting, unspecified
--- NOTE | 2023-10-24 12:46 | Hospitalist Progress Note ---
Date of Service October 24, 2023 Assessment & Plan (1) Nausea & vomiting: Plan: -[facility] due to ongoing intractable nausea/vomiting, dehydration, dizziness, and weight loss -Has been experiencing these symptoms for months, no acute abdominal changes, had a negative CT of the abd/pelvis on 10/13 -Likely due to his known melanoma and Keytruda treatment Currently on Compazine and Zofran Continue to monitor him on telemetry because of prolonged QT Repeat EKG showed improved QT Patient is complaining of constant hiccups Ordered baclofen MRI brain negative Oncology on board GI on board, planning on EGD tomorrow Will advance to a solid diet today and keep n.p.o. postmidnight for EGD tomorrow (2) Malnutrition: Plan: -Has lost approximately 60 lbs since July -Consult dietitian (3) Dizziness: Plan: -Is associated with positional changes and worst when going from sitting to standing -Denies sensation that room is spinning or changes in hearing/auditory fullness -Orthostatic vital signs are negative but this is after he received IV hydration MRI brain negative -No arrhythmia on telemetry Improved today Likely due to dehydration from poor p.o. intake (4) History of melanoma: Plan: -Oncology on board (5) Hypokalemia: Plan: Resolved after repletion Magnesium repleted as well -Follow am renal function and electrolytes (6) Hypomagnesemia: Plan: -See hypokalemia Plan Discharge tomorrow after EGD Admission and Anticipated Discharge Date Admission Date: October 22, 2023 Subjective Patient feels well. Denies chest pain or shortness of breath. Denies feeling dizzy or lightheaded. Tolerating a full liquid diet. Would like to try solid diet today. Review of Systems Review of Systems: All systems reviewed & are unremarkable except as noted in Subjective Physical Exam Physical Exam: General: Awake, conversant Heart: S1, S2/regular rate and rhythm, no murmur rubs or gallops Lungs: Clear to auscultation bilaterally. Normal effort Abdomen: Soft/nontender/nondistended. No hepatosplenomegaly Extremities: No clubbing/cyanosis. No edema Behavior: Appropriate, cooperative Results & Data Results & Data Vital Signs (Past 12 Hours) Vital Signs Temp Pulse Pulse Resp BP Pulse Ox O2 Del Method 10/24/23 11:31 36.8 C 78 17 132/82 98 Room Air 10/24/23 09:15 Room Air 10/24/23 08:06 36.4 C L 83 20 115/76 97 Room Air 10/24/23 07:24 79 10/24/23 04:35 36.5 C 85 20 128/81 97 Room Air PG Care Time/CCT Total # of Minutes Spent Total Time Spent with Patient: Total time spent is greater than 50% in coordination of care (as documented) at patient's floor/unit and/or counseling patient: Coding Level of Care Code 92248 SUB INP/OBS CARE 2/35MIN Diagnoses Nausea & vomiting R11.2 Vomiting type: unspecified Malnutrition E46 Dizziness R42 History of melanoma Z85.820 Hypokalemia E87.6 Hypomagnesemia E83.42 (1) Nausea & vomiting Vomiting type: unspecified Qualified Code(s): R11.2 - Nausea with vomiting, unspecified
[2023-10-25 05:03] LABS: Hematocrit (blood only) 27.2 % (42.0-52.0); Mean Corpuscular Hemoglobin 28.9 pg (25.0-34.0); Mean Corpuscular Hgb Conc 33.1 g/dL (32.0-36.0); Mean Corpuscular Volume 87.5 fL (80.0-100.0); Mean Platelet Volume 11.7 fL (9.4-12.4); Platelet Count 148 K/uL (130-400); RDW Coefficient of Variation 12.9 % (11.5-14.5); RDW Standard Deviation 41.1 fL (36.4-46.3); Red Blood Count 3.11 M/uL (4.70-6.10)
[2023-10-25 05:20] LABS: Albumin Globulin Ratio 1.7 (0.9-2); BUN Creatinine Ratio 16.1 (10-20); Bilirubin,Total 0.5 mg/dl (0.2-1.0); Calcium 8.2 mg/dl (8.6-10.3); Creatinine Clr Calc Pharmacy 118.3 ml/min; Est GFR (Non-African American) 99.2 ml/min; Globulin 1.8 gm/dl (2.5-4.0); Magnesium 1.7 mg/dl (1.7-2.4); Potassium 3.3 mmol/L (3.5-5.1); Total Protein 4.8 gm/dl (6.0-8.3)
[2023-10-25 05:37] LABS: Basophils # (auto) 0.03 K/uL (0.00-0.20); Basophils % (auto) 0.7 %; Lymphocytes # (auto) 2.24 K/uL (1.20-3.40); Lymphocytes % (auto) 52.1 %; Monocytes # (auto) 0.47 K/uL (0.11-0.59); Monocytes % (auto) 10.9 %; Neutrophils # (auto) 1.56 K/uL (1.40-6.50); Neutrophils % (auto) 36.3 %
--- NOTE | 2023-10-25 06:02 | Electrocardiogram Report ---
Test Reason : Blood Pressure : / mmHG Vent. Rate : 078 BPM Atrial Rate : 078 BPM P-R Int : 176 ms QRS Dur : 106 ms QT Int : 390 ms P-R-T Axes : 072 039 031 degrees QTc Int : 444 ms Normal sinus rhythm Normal ECG When compared with ECG of 22-OCT-2023 11:32, Incomplete right bundle branch block is no longer Present Confirmed by Kali Barber ([id number]) on 10/25/2023 6:02:05 AM Referred By: REFERRED SELF Confirmed By:Kali Barber
--- NOTE | 2023-10-25 12:20 | Anesthesiology Consultation ---
Date of Service October 25, 2023 Assessment & Plan Chart Review Chart Review: Acceptable Risk for Surgery and Patient NOT seen in Pre Admission Testing Consults Requested none ASA ASA3 Proposed Anesthesia Anesthesia Type: MAC History Surgery Operation Date: 10/25/23 16:30 Proposed Procedures p Esophagogastroduodenoscopy Dr. Scarlett Pantoja Jr, MD Height/Weight Height: 6 ft Weight: 94.2 kg Allergies Allergy/AdvReac Type Severity Reaction Status Date / Time aspirin Allergy King's Verified 10/22/23 12:50 syndrome Medications Home Medications Medication Instructions Recorded Confirmed Last Taken promethazine 25 mg rectal 25 mg NC Q6H PRN sedation #12 ea 10/16/23 10/22/23 Unknown suppository ondansetron 4 mg disintegrating 4 mg translingual Q12 PRN Nausea 10/22/23 10/22/23 Unknown tablet prochlorperazine maleate 5 mg 5 mg PO Q6 PRN Nausea 10/22/23 10/22/23 Unknown tablet promethazine 25 mg tablet 25 mg PO Q6 PRN Nausea 10/22/23 10/22/23 Unknown Active Medications Generic Name Dose Route Start Last Admin Trade Name Freq PRN Reason Stop Dose Admin Baclofen 10 mg 10/23/23 21:00 10/25/23 08:35 Baclofen 10 Mg Tab PO 11/22/23 20:59 10 mg BID WARD Administration Ropinirole HCl 0.25 mg 10/22/23 21:00 10/24/23 21:33 Ropinirole Hcl 0.25 Mg Tablet PO 11/21/23 20:59 0.25 mg HS WARD Administration Past Medical History Medical History Melanoma anemia Exercise / Class Metabolic Activity II 4-5 Yardwork/Stairs/Walk up hill Past Surgical History Surgical History History of skin surgery Past Anesthesia History No Hx of Anesthesia Complications and No Family Hx of Anesthesia Complications History of PONV No Hx of PONV and No Hx of Motion Sickness Social History Smoking Status: Never smoker Hx Alcohol Use: No Hx Substance Use: No substance use type: does not use Physical Exam Vital Signs Last Vital Signs Temp 36.5 C 10/25/23 11:44 Pulse 68 04/08/24 11:44 Resp 18 10/25/23 11:44 BP 116/76 10/25/23 11:44 Pulse Ox 97 10/25/23 11:44 O2 Del Method Room Air 10/25/23 11:44 Testing Laboratory Results 10/25/23 04:26 10/25/23 04:26 Electrocardiogram Date: 10/24/23 Findings: + NSR @ (@ 78)
--- NOTE | 2023-10-25 12:45 | History & Physical Report ---
Date of Service October 25, 2023 Assessment & Plan (1) Vomiting: Plan: Procedure and risks for EGD discussed with patient. He agrees Nausea presence: with nausea Vomiting type: unspecified Qualified Code(s): R11.2 - Nausea with vomiting, unspecified Admission and Anticipated Discharge Date Admission Date: October 24, 2023 History of Present Illness Chief Complaint: vomiting Primary Care Provider: NO PCP 52 year old man with malignant melanoma and persistent vomiting. He is having EGD Allergies Allergy/AdvReac Type Severity Reaction Status Date / Time aspirin Allergy King's Verified 10/22/23 12:50 syndrome Home Medications Medication Instructions Recorded Confirmed Type promethazine 25 mg rectal 25 mg TX Q6H PRN sedation #12 ea 10/16/23 10/22/23 Rx suppository ondansetron 4 mg disintegrating 4 mg translingual Q12 PRN Nausea 10/22/23 10/22/23 History tablet prochlorperazine maleate 5 mg 5 mg PO Q6 PRN Nausea 10/22/23 10/22/23 History tablet promethazine 25 mg tablet 25 mg PO Q6 PRN Nausea 10/22/23 10/22/23 History Past Med/Surg History Medical History Melanoma Surgical History History of skin surgery Social History Smoking Status: Never smoker Tobacco Type: Cigarettes Hx Alcohol Use: No Hx Substance Use: No Preferred Language: Upper Sorbian Communication Ability: Effective Surgical Supplies Sterilizer Required: No Beliefs That Will Affect Care: None Current Living Situation: Spouse Other Information That Helps Us Care for You: No Feels Safe at Home: Yes Safety Concerns: Feels Safe At This Time Assistive Devices: Cane Physical Exam Constitutional: WD/WN, vitals as above Neck: trachea midline, no thyromegaly Respiratory: normal respiratory effort, lungs clear to auscultation Cardiovascular: RRR, no murmur, no edema Gastrointestinal (Abdomen): normal bowel sounds, soft, nontender, no hepatosplenomegaly ASA Classification ASA ASA2 Results & Data Vital Signs (Past 12 Hours) Vital Signs Temp Pulse Pulse Resp BP Pulse Ox O2 Del Method 10/25/23 12:36 36.4 C L 77 16 141/97 H 98 Room Air 10/25/23 11:44 36.5 C 68 18 116/76 97 Room Air 10/25/23 11:22 Room Air 10/25/23 08:00 69 10/25/23 07:46 36.9 C 66 18 123/78 96 Room Air 10/25/23 02:59 36.5 C 74 16 118/67 98 Room Air Code Status & VTE Plan VTE Prophylaxis Plan VTE Prophylaxis will be ordered: Yes
[2023-10-25] MEDS: SODIUM CHLORIDE 0.9% 500 ML IV SCH (12:47)
[2023-10-25] MEDS ORDERED: ATROPINE SULFATE 0.1 MG/ML 10ML SYR IV PRN (12:52)
[2023-10-25] MEDS ORDERED: ePHEDrine sulfate 50 MG/ML AMP IV PRN (12:52)
--- NOTE | 2023-10-25 13:06 | GI REPORT ---
Patient Name: Wilfrid Conroy Procedure Date: 10/25/2023 12:48 PM Date of : 1970 Admit Type: Inpatient Age: 52 Gender: Male Attending MD: Nima Pantoja MD, Procedure: Upper GI endoscopy Providers: Nima Pantoja MD Referring MD: Deana Brewer Md Indications: Vomiting Medicines: Propofol per Anesthesia Complications: No immediate complications. Estimated Blood Loss: Estimated blood loss: none. Procedure: Pre-Anesthesia Assessment: - Prior to the procedure, a History and Physical was performed, and patient medications and allergies were reviewed. The patient's tolerance of previous anesthesia was also reviewed. The risks and benefits of the procedure and the sedation options and risks were discussed with the patient. All questions were answered, and informed consent was obtained. Prior Anticoagulants: The patient has taken no anticoagulant or antiplatelet agents. ASA Grade Assessment: II - A patient with mild systemic disease. After reviewing the risks and benefits, the patient was deemed in satisfactory condition to undergo the procedure. After obtaining informed consent, the endoscope was passed under direct vision. Throughout the procedure, the patient's blood pressure, pulse, and oxygen saturations were monitored continuously. The Endoscope was introduced through the mouth, and advanced to the second part of duodenum. The upper GI endoscopy was accomplished without difficulty. The patient tolerated the procedure well. Findings: LA Grade A (one or more mucosal breaks less than 5 mm, not extending between tops of 2 mucosal folds) esophagitis with no bleeding was found in the lower third of the esophagus. The stomach was normal. The examined duodenum was normal. Impression: - LA Grade A reflux esophagitis with no bleeding. - Normal stomach. - Normal examined duodenum. - No specimens collected. Recommendation: - [facility]. Nima Pantoja MD 10/25/2023 1:05:57 PM Note Initiated On: 10/25/2023 12:48 PM Number of Addenda: 0 I attest to the content of the Intraoperative Record and orders documented therein, exceptions below {[id number]}
--- NOTE | 2023-10-25 13:43 | Anesthesiology Progress Note ---
Date of Service October 25, 2023 Anesthesia Post Procedure Vital Signs Vital Signs: Temp Pulse Pulse Resp BP Pulse Ox O2 Del Method 10/25/23 13:36 61 16 149/96 H 100 Room Air 10/25/23 13:21 68 16 130/84 95 Room Air 10/25/23 13:06 36.5 C 71 16 119/76 98 Room Air 10/25/23 12:36 36.4 C L 77 16 141/97 H 98 Room Air 10/25/23 11:44 36.5 C 68 18 116/76 97 Room Air 10/25/23 11:22 Room Air 10/25/23 08:00 69 10/25/23 07:46 36.9 C 66 18 123/78 96 Room Air 10/25/23 02:59 36.5 C 74 16 118/67 98 Room Air 10/24/23 23:07 36.9 C 82 16 129/79 98 Room Air 10/24/23 22:15 88 10/24/23 20:15 Room Air 10/24/23 19:37 36.8 C 80 16 127/81 98 Room Air 10/24/23 16:31 36.5 C 74 17 127/79 98 Room Air 10/24/23 15:47 87 Transfer of Care Handoff Completed per policy Notes Mental Status: alert / awake / arousable Patient Amnestic to Procedure: Yes Nausea / Vomiting: adequately controlled Pain: adequately controlled Airway Patency, RR, SpO2: stable & adequate BP & HR: stable & adequate Hydration State: stable & adequate Anesthetic Complications: no major complications apparent
[2023-10-25] MEDS: POTASSIUM CHLORIDE CRTAB 20 MEQ TABCR PO STA (14:04)
--- NOTE | 2023-10-25 14:22 | Discharge Summary ---
Date of Service October 25, 2023 Admission HPI Per Admitting Provider 52 year old man with malignant melanoma and persistent vomiting, hypokalemia, hypomagnesemia, underwent EGD LA Grade A (one or more mucosal breaks less than 5 mm, not extending between tops of 2 mucosal folds) esophagitis with no bleeding was found in the lower third of the esophagus. The stomach was normal. The examined duodenum was normal. electrolytes supplemented, he tolerated diet, will discharge on PPI. Principal Diagnosis intractable nausea, vomiting Discharge Exam head atraumatic neck supple chest CTA heart S1S2 regular abdomen soft, NT, ND, BS present extremities no clubbing , no cyanosis Discharge Data Allergies Allergy/AdvReac Type Severity Reaction Status Date / Time aspirin Allergy King's Verified 10/22/23 12:50 syndrome Consultations 10/22/23 12:28 ED Decision to Admit Stat 10/22/23 12:48 Consult Oncology Routine 10/22/23 20:41 Consult Gastroenterology Routine Procedures Performed Operation Date: 10/25/23 16:30 Actual Procedures p Esophagogastroduodenoscopy - Nima Pantoja Jr, MD Ordered Studies 10/22/23 11:44 MR brain wo/w con Stat Hospital Course (1) Nausea & vomiting: -[facility] due to ongoing intractable nausea/vomiting, dehydration, dizziness, and weight loss -Has been experiencing these symptoms for months, no acute abdominal changes, had a negative CT of the abd/pelvis on 10/13 -Likely due to his known melanoma and Keytruda treatment Currently on Compazine and Zofran Continue to monitor him on telemetry because of prolonged QT Repeat EKG showed improved QT Patient is complaining of constant hiccups Ordered baclofen MRI brain negative Oncology on board GI on board, planning on EGD tomorrow Will advance to a solid diet today and keep n.p.o. postmidnight for EGD tomorrow (2) Malnutrition: -Has lost approximately 60 lbs since July -Consult dietitian (3) Dizziness: -Is associated with positional changes and worst when going from sitting to standing -Denies sensation that room is spinning or changes in hearing/auditory fullness -Orthostatic vital signs are negative but this is after he received IV hydration MRI brain negative -No arrhythmia on telemetry Improved today Likely due to dehydration from poor p.o. intake (4) History of melanoma: -Oncology on board (5) Hypokalemia: Resolved after repletion Magnesium repleted as well -Follow am renal function and electrolytes (6) Hypomagnesemia: -See hypokalemia Plan Discharge tomorrow after EGD Total Time Total Time Spent Total Time Spent (In Minutes): 35 Discharge Plan Discharge Items Patient Disposition: Home - Self-Care Reason For Visit: INTRACXTABLE NAUSEA/VOMITING, HYPOKALEMIA, LOW MAG Discharge Diagnosis: intractable nausea, vomiting Condition on Discharge: Fair Activity: Resume your previous activity Non-emergency contact: Primary Care Provider and Oncologist Call non-emergency contact if: you have any medication questions and your symptoms worsen Follow-up/Referrals: PCP,NO [Primary Care Provider] - Diet: Regular Addtl Attending Provider Instructions: see your PCP in 7 days Pending Studies at Discharge: No Stand-Alone Forms: My [employer] Smoking Cessation Medications and DC Order Prescriptions: New pantoprazole [Protonix] 40 mg tablet,delayed release (DR/EC) 40 mg PO DAILY Qty: 30 0RF Continued promethazine 25 mg tablet 25 mg PO Q6 PRN (Reason: Nausea) promethazine 25 mg suppository 25 mg VA Q6H PRN (Reason: sedation) Qty: 12 0RF No Action prochlorperazine maleate 5 mg tablet 5 mg PO Q6 PRN (Reason: Nausea) ondansetron 4 mg tablet,disintegrating 4 mg translingual Q12 PRN (Reason: Nausea) Admission Data Admit Date/Time: 10/24/23 18:17 Attending Provider: Deana Brewer Admit Provider: Nicolás Vizcaino Primary Care Provider: PCP,NO Other Providers: Nicolás Vizcaino; Reza Hercules Wilmot C. Jr Coding Level of Care Code 62363 INP/OBS DISCH >30 MIN Diagnoses Nausea & vomiting R11.2 Vomiting type: unspecified Malnutrition E46 Dizziness R42 History of melanoma Z85.820 Hypokalemia E87.6 Hypomagnesemia E83.42
[2023-10-25] MEDS: MAGNESIUM SULFATE / D5W 1 GM/100 ML BAG IV ONE (15:03)
[2023-10-25] MEDS: PROPOFOL IV EMULSION 10 MG/ML 20 ML VIAL IV ONE (16:03)
[2023-10-25] MEDS: LIDOCAINE 2% 2 ML VIAL/AMP(20MG/ML) INFIL ONE (16:03)
--- NOTE | 2023-10-31 13:00 | Coding Query ---
MALNUTRITION To promote full compliance with coding requirements relating to patient care, physician participation is requested in all cases of long goods drier uncertainty. Please assist us with the question(s) below: Please place an X within the parenthesis (x). If other, please document: "Malnutrition" is documented in this record. If possible, please check the box that provides a more specific diagnosis: ( ) Mild malnutrition (x ) Moderate malnutrition ( ) Severe malnutrition ( ) Protein malnutrition (kwashiorkor) ( ) Severe protein calorie malnutrition ( ) Protein calorie malnutrition, unspecified ( ) Other (please specify): Was this diagnosis present on admission? Please place an X within the parenthesis (x). ( ) Present on admission ( ) Not present on admission ( ) Unable to be clinically determined Thank you Carmen GE
== END 2023-10-25 17:37 | disposition home or self-care (01) | DRG 392 ==
LOC: ED 11:22 → EDINP 11:22 → SUATTDRO 12:40 → 2W 21:56 → SUATTDRO 10-24 18:17
DX: E86.0 Dehydration; Z68.28 Body mass index [BMI] 28.0-28.9, adult; E44.0 Moderate protein-calorie malnutrition; R06.6 Hiccough; E83.42 Hypomagnesemia; Z88.6 Allergy status to analgesic agent; T45.1X5A Adverse effect of antineoplastic and immunosuppressive drugs, initial encounter; I45.81 Long QT syndrome; R62.7 Adult failure to thrive; C43.9 Malignant melanoma of skin, unspecified; R11.2 Nausea with vomiting, unspecified; Z79.899 Other long term (current) drug therapy; E87.6 Hypokalemia